=== PATIENT | male | born 1980 | race American Indian/Alaskan Native ===

== ENCOUNTER 2018-06-29 14:58 | Emergency (ER) | payer OTHER ==
--- NOTE | 2018-06-29 16:28 | Emergency Department Report ---
Chief Complaint: Nausea/Vomiting/Diarrhea Stated Complaint: CHEST PAIN/VOMITING/DIARRHEA Time Seen by Provider: 06/29/18 16:27 - HPI History of Present Illness: CO ABD PAIN AND NV RX METFORMIN PMH DM PSH NONE PCP SERGIO SERRANO ETOH NO CIG NO THC NO DRUGS MSE COMPLETED MSE screening note: Focused history and physical exam performed. Due to findings the following was ordered: ED Disposition for MSE Condition: Stable
[2018-06-29 17:28] LABS: Bacteria,Urine 4+ /HPF (Negative); Bilirubin,Urine NEG (Negative); Blood,Urine NEG (Negative); Color,Urine Yellow (Yellow); Mucus,Urine 3+ /HPF; Urobilinogen,Urine < 2.0 mg/dL (<2.0)
[2018-06-29 19:07] LABS: Alanine Aminotransferase 22 units/L (7-56); Albumin 4.4 g/dL (3.9-5); BUN/Creatinine Ratio 23; Blood Urea Nitrogen 16 mg/dL (9-20); Hemolysis Index 39
--- NOTE | 2018-06-29 19:11 | Emergency Department Report ---
ED General Adult HPI - General Chief complaint: Nausea/Vomiting/Diarrhea Stated complaint: CHEST PAIN/VOMITING/DIARRHEA Time Seen by Provider: 06/29/18 16:27 Source: patient Mode of arrival: Ambulatory Limitations: No Limitations - History of Present Illness Initial comments: Patient 37-year-old male with history of diabetes and hypertensi on who presents for chest pain and abdominal pain with nausea vomiting 5/10 for the past 3 days associated nausea and vomiting 2 hours ago last episode by mouth intake was this a.m. chest exacerbated by exertion and relieved by nothing patient endorses occasional EtOH and back pain there is no shortness of breath no diaphoresis no dizziness or lightheadedness at this time Onset/Timin -: days(s) Location: chest, back, abdomen Radiation: back, abdomen Severity scale (0 -10): 8 Quality: sharp Consistency: constant Improves with: none Worsens with: eating, movement Associated Symptoms: chest pain, malaise, nausea/vomiting Treatments Prior to Arrival: none - Related Data Previous Rx's Medication Instructions Recorded Last Taken Type Ondansetron [Zofran Odt] 4 mg PO Q8HR PRN #12 tab.rapdis 06/29/18 Unknown Rx traMADol [Ultram] 50 mg PO Q6HR PRN #12 tablet 06/29/18 Unknown Rx Allergies Allergy/AdvReac Type Severity Reaction Status Date / Time No Known Allergies Allergy Unverified 06/29/18 15:00 ED Review of Systems ROS: Stated complaint: CHEST PAIN/VOMITING/DIARRHEA Other details as noted in HPI Constitutional: malaise Eyes: denies: eye pain, eye discharge, vision change ENT: denies: ear pain, throat pain Respiratory: denies: cough, shortness of breath, wheezing Cardiovascular: chest pain Endocrine: no symptoms reported Gastrointestinal: abdominal pain, nausea, vomiting, diarrhea. denies: consti pation, hematemesis, melena, hematochezia Genitourinary: denies: urgency, dysuria Musculoskeletal: back pain Skin: denies: rash, lesions Neurological: denies: headache, weakness, paresthesias Psychiatric: denies: anxiety, depression Hematological/Lymphatic: denies: easy bleeding, easy bruising ED Past Medical Hx - Past Medical History Previous Medical History?: Yes Hx Diabetes: Yes - Surgical History Past Surgical History?: No - Social History Smoking Status: Never Smoker Substance Use Type: Alcohol - Medications Home Medications: Home Medications Medication Instructions Recorded Confirmed Last Taken Type Ondansetron [Zofran Odt] 4 mg PO Q8HR PRN #12 tab.rapdis 06/29/18 Unknown Rx traMADol [Ultram] 50 mg PO Q6HR PRN #12 tablet 06/29/18 Unknown Rx ED Physical Exam - General Limitations: No Limitations General appearance: alert, in no apparent distress - Head Head exam: Present: atraumatic, normocephalic - Eye Eye exam: Present: normal appearance, PERRL, EOMI Pupils: Present: normal accommodation - ENT ENT exam: Present: normal orophraynx, mucous membranes moist - Neck Neck exam: Present: normal inspection, full ROM. Absent: tenderness, meningismus, lymphadenopathy, thyromegaly - Respiratory Respiratory exam: Present: normal lung sounds bilaterally. Absent: respiratory distress, wheezes, stridor, chest wall tenderness - Cardiovascular Cardiovascular Exam: Present: regular rate, normal rhythm, normal heart sounds. Absent: systolic murmur, diastolic murmur, rubs, gallop - GI/Abdominal GI/Abdominal exam: Present: soft, tenderness (epigastric ), normal bowel sounds. Absent: guarding, rebound, rigid, bruit, hernia - Expanded GI/Abdominal Exam Expanded GI/Abdominal exam: Present: Rovsing's sign. Absent: psoas sign, obturator sign, heel tap sign, Kam's sign, tenderness at Mcburney's Point, ascites - Rectal Rectal exam: Present: deferred - Extremities Exam Extremities exam: Present: normal inspection - Back Exam Back exam: Present: normal inspection, full ROM. Absent: tenderness, CVA tenderness (R), CVA tenderness (L), muscle spasm, paraspinal tenderness, vertebral tenderness, rash noted - Neurological Exam Neurological exam: Present: alert, oriented X3, CN II-XII intact, normal gait - Psychiatric Psychiatric exam: Present: normal affect, normal mood - Skin Skin exam: Present: warm, dry, intact, normal color. Absent: rash ED Medical Decision Making - Lab Data Result diagrams: 06/29/18 18:30 06/29/18 18:30 - Radiology Data Radiology results: report reviewed, image reviewed c: ALFREDA FERNANDEZ NP PROCEDURE: CT ABDOMEN PELVIS WO CON TECHNIQUE: HISTORY: abd pain hx renal stones COMPARISONS: None FINDINGS: Lower Lung thomas: No significant abnormalities seen. Upper Abdomen: The liver, gallbladder, the adrenal glands, the pancreas and the spleen are unremarkable. Kidneys, Ureters and Urinary bladder: No abnormalities are seen. No renal or ure teral calculi are visualized. There are no renal masses identified. There is no hydronephrosis. Urinary bladder is nearly empty and difficult to characterize. No gross abnormality is seen. Retroperitoneum: Abdominal aorta appears normal. Nonspecific subcentimeter lymph nodes are seen in the retroperitoneum. No pathologically enlarged lymph nodes are identified. Bowel: No focal bowel loop abnormalities are visualized. There is no evidence of bowel obstruction ascites or free intraperitoneal gas. Normal-appearing appendix is seen in the right lower quadrant. Small umbilical hernia containing adipose tissue is visualized. No herniated loops of bowel are seen. - Medical Decision Making CT Abd Pelvis smal umbillical hernia, CXR: normal no infiltrate no opacities, labs: normal UA: moderate rbc, wbd, plan tx for UTI , umbilical hernia , hernia is stable no obstruction, plan dc to home with rx for zofran, Ultram, Bactrim DS pt verbalized agreement and understanding of discharge plan. pt dc'd to home in stable condition at this time. Critical care attestation.: If time is entered above; I have spent that time in minutes in the direct care of this critically ill patient, excluding procedure time. ED Disposition Clinical Impression: Abdominal pain Qualifiers: Abdominal location: left lower quadrant Qualified Code(s): R10.32 - Left lower quadrant pain Disposition: DC-01 TO HOME OR SELFCARE Is pt being admited?: No Does the pt Need Aspirin: No Condition: Good Instructions: Umbilical Hernia (ED), Urinary Tract Infection in Men (ED) Prescriptions: traMADol [Ultram] 50 mg PO Q6HR PRN #12 tablet PRN Reason: Pain Ondansetron [Zofran Odt] 4 mg PO Q8HR PRN #12 tab.rapdis PRN Reason: nausea vomitting Referrals: PRIMARY CARE,MD [Primary Care Provider] - 3-5 Days EMILY KOWALSKI DO [Staff Physician] - 3-5 Days Forms: Work/School Release Form(ED) Time of Disposition: 22:13
[2018-06-29 19:12] LABS: Hematocrit 49.9 % (35.5-45.6); Hemoglobin 16.4 gm/dl (11.8-15.2); Mean Corpuscular HGB Conc 33 % (32-34); Mean Corpuscular Volume 88 fl (84-94); Platelet Count 222 K/mm3 (140-440); Red Cell Distribution Width 13.3 % (13.2-15.2)
--- NOTE | 2018-06-29 19:31 | XRay Report ---
PROCEDURE: Chest. TECHNIQUE: PA and lateral views. HISTORY: Chest pain. COMPARISONS: None. FINDINGS: The heart and mediastinum appear normal. The lungs are clear and well-expanded. The soft tissues and regional skeleton are unremarkable. IMPRESSION: Normal study. This document is electronically signed by Mitul Ashley MD., June 29 2018 07:28:45 PM ET
[2018-06-29] MEDS ORDERED: TORADOL IV ONE (20:09)
[2018-06-29] MEDS ORDERED: NACL 0.9% 1000 ML 1,000 ML IV ONE (20:09)
[2018-06-29] MEDS ORDERED: ZOFRAN IV ONE (20:09)
--- NOTE | 2018-06-29 21:46 | Cat Scan Report ---
PROCEDURE: CT ABDOMEN PELVIS WO CON TECHNIQUE: HISTORY: abd pain hx renal stones COMPARISONS: None FINDINGS: Lower Lung thomas: No significant abnormalities seen. Upper Abdomen: The liver, gallbladder, the adrenal glands, the pancreas and the spleen are unremarka ble. Kidneys, Ureters and Urinary bladder: No abnormalities are seen. No renal or ureteral calculi are vi sualized. There are no renal masses identified. There is no hydronephrosis. Urinary bladder is nearly empty and difficult to characterize. No gross abnormality is seen. Retroperitoneum: Abdominal aorta appears normal. Nonspecific subcentimeter lymph nodes are seen in the retroperitoneum. No pathologically enlarged ly mph nodes are identified. Bowel: No focal bowel loop abnormalities are visualized. There is no evidence of bowel obstruction a scites or free intraperitoneal gas. Normal-appearing appendix is seen in the right lower quadrant. Sm all umbilical hernia containing adipose tissue is visualized. No herniated loops of bowel are seen. Reproductive organs: Prostate gland does not appear to be significantly enlarged. Other: No acute bony abnormalities are identified. IMPRESSION: No evidence of renal or ureteral calculi. There is no hydronephrosis. No acute abnormalities are identified. There is a small umbilical hernia containing adipose tissue. No herniated loops of bowel are seen. This document is electronically signed by Carmelo Moon MD., June 29 2018 09:44:41 PM ET
[2018-06-29 22:55] VITALS: BP 138/92
== END 2018-06-29 22:53 | disposition home or self-care (01) ==
LOC: ED 14:58
DX: R10.32 Left lower quadrant pain (principal); R11.2 Nausea with vomiting, unspecified; R07.89 Other chest pain; R19.7 Diarrhea, unspecified; I10 Essential (primary) hypertension; E11.9 Type 2 diabetes mellitus without complications
CPT/HCPCS: 36415; 71046; 74176; 80053; 81001; 82805; 82962; 83690; 84484; 85027; 93005; 93010; 96361; 96374; 96375; 99284; J1885; J2405; J7030

== ENCOUNTER 2019-04-10 01:49 | Emergency (ER) | payer SELFPAY ==
[2019-04-10 01:58] VITALS: BP 133/85
--- NOTE | 2019-04-10 05:10 | Emergency Department Report ---
Abscess Boil HPI - HPI Chief Complaint: Skin/Abscess/Foreign Body Stated Complaint: HEADACHE Time Seen by Provider: 04/10/19 04:43 Duration: 5 Days Location: Head (occipital scalp) Severity: Moderate History: Yes Pain, Yes Purulent Drainage, No Fever, No Numbness, No Foreign Body, No Previous History, No Insect Bite HPI: This is a 38-year-old -[place] male that presents to the emergency room with a painful abscess to occipital scalp for 3 days. Past medical history of diabetes type 2. Patient reports purulent foul-smelling discharge. Patient states he is applying cool compresses with minimal improvement in symptoms. He denies numbness or tingling. Home Medications: Previous Rx's Medication Instructions Recorded Last Taken Type Ondansetron [Zofran Odt] 4 mg PO Q8HR PRN #12 tab.rapdis 06/29/18 Unknown Rx Sulfamethoxazole/Trimethoprim 1 each PO BID 10 Days #20 tablet 06/29/18 Unknown Rx [Bactrim DS TAB] traMADoL [Ultram] 50 mg PO Q6HR PRN #12 tablet 06/29/18 Unknown Rx Clindamycin Phosphate [Clindamycin 1 applicatio TP TID #1 foam 04/10/19 Unknown Rx 1% TOPICAL FOAM] Clindamycin [Clindamycin CAP] 300 mg PO Q6H #40 capsule 04/10/19 Unknown Rx Allergies/Adverse Reactions: Allergies Allergy/AdvReac Type Severity Reaction Status Date / Time No Known Allergies Allergy Unverified 06/29/18 15:00 ED Review of Systems ROS: Stated complaint: HEADACHE Other details as noted in HPI Constitutional: denies: chills, fever Respiratory: denies: cough, shortness of breath, wheezing Cardiovascular: denies: chest pain, palpitations Gastrointestinal: denies: abdominal pain, nausea, diarrhea Skin: lesions (painful abscess to occipital scalp). denies: change in color, ch marisa in hair/nails, pruritus Neurological: denies: headache, weakness, paresthesias Psychiatric: denies: anxiety, depression ED Past Medical Hx - Past Medical History Previous Medical History?: Yes Hx Diabetes: Yes - Surgical History Past Surgical History?: No - Social History Smoking Status: Never Smoker Substance Use Type: None - Medications Home Medications: Home Medications Medication Instructions Recorded Confirmed Last Taken Type Ondansetron [Zofran Odt] 4 mg PO Q8HR PRN #12 tab.rapdis 06/29/18 Unknown Rx Sulfamethoxazole/Trimethoprim 1 each PO BID 10 Days #20 tablet 06/29/18 Unknown Rx [Bactrim DS TAB] traMADoL [Ultram] 50 mg PO Q6HR PRN #12 tablet 06/29/18 Unknown Rx Clindamycin Phosphate [Clindamycin 1 applicatio TP TID #1 foam 04/10/19 Unknown Rx 1% TOPICAL FOAM] Clindamycin [Clindamycin CAP] 300 mg PO Q6H #40 capsule 04/10/19 Unknown Rx ED Abscess Boil Physical Exam - Exam General: Vital signs noted. No distress. Alert and acting appropriately. Front/Back of Body, Lg (Color): 1 - 1 cm nonfluctuant nodule to occipital scalp, purulent drainage, TTP, no surrounding cellulitis Size: 1 cm Exam: Yes Tenderness, Yes Normal Neurologic Exam, Yes Normal Circulation, No Fluctuance, No Surrounding Cellulites/Erythema, No Lymphangitis, No Crepitation, No Heart Murmur ED Course Vital Signs 04/10/19 01:52 Temperature 99.4 F Pulse Rate 95 H Respiratory 18 Rate Blood Pressure 133/85 O2 Sat by Pulse 95 Oximetry Critical care attestation.: If time is entered above; I have spent that time in minutes in the direct care of this critically ill patient, excluding procedure time. ED Medical Decision Making - Medical Decision Making This is a 38 y.o. male that presents with a painful abscess to occipital scalp for 3 days. Past medical history of diabetes type 2. No history of prior abscess. Patient is stable and examined by this provider. Physical assessment of 1 cm nonfluctuant nodule to occipital scalp, purulent drainage, TTP. No acute signs of distress noted. Abscess is currently draining and even with mild palpation. Start trauma doll, clindamycin orally and topically. Instructed to apply warm compress. Educated patient and spouse on follow up plan to have woun d reassessed in 2-3 days with a primary care doctor.. Patient agrees to ED plan of care. Discharged home and follow up with PCP in 2-3 days. ED Disposition Clinical Impression: Folliculitis, Pain due to abscess Disposition: DC-01 TO HOME OR SELFCARE Is pt being admited?: No Condition: Stable Instructions: Folliculitis (ED) Additional Instructions: Complete full course of antibiotics as prescribed. Follow up with a primary care doctor in 2-3 days to have wound reevaluated. Was sent to the emergency room if foul smelling discharge, swelling, or pain in wound. Prescriptions: Clindamycin Phosphate [Clindamycin 1% TOPICAL FOAM] 1 applicatio TP TID #1 foam Clindamycin [Clindamycin CAP] 300 mg PO Q6H #40 capsule Referrals: [facility] [Outside] - 3-5 Days [facility] [Outside] - 3-5 Days [facility] [Outside] - 3-5 Days Forms: Work/School Release Form(ED) Time of Disposition: 05:16
[2019-04-10] MEDS ORDERED: HYDROcodone/ACETAMINOPHEN 5-325 MG TAB PO ONE (05:29)
== END 2019-04-10 05:37 | disposition home or self-care (01) ==
LOC: ED 01:49
DX: L73.9 Follicular disorder, unspecified (principal); E11.9 Type 2 diabetes mellitus without complications
CPT/HCPCS: 99282

== ENCOUNTER 2019-06-14 00:57 | Emergency (ER) | payer SELFPAY ==
--- NOTE | 2019-06-14 01:47 | Emergency Department Report ---
- General Chief complaint: Hyperglycemia Stated complaint: HIGH BLOOD SUGAR BLURRED VISION Time Seen by Provider: 06/14/19 01:45 Source: patient Mode of arrival: Ambulatory Limitations: No Limitations - Related Data Previous Rx's Medication Instructions Recorded Last Taken Type Ondansetron [Zofran Odt] 4 mg PO Q8HR PRN #12 tab.rapdis 06/29/18 Unknown Rx Sulfamethoxazole/Trimethoprim 1 each PO BID 10 Days #20 tablet 06/29/18 Unknown Rx [Bactrim DS TAB] traMADoL [Ultram] 50 mg PO Q6HR PRN #12 tablet 06/29/18 Unknown Rx Clindamycin Phosphate [Clindamycin 1 applicatio TP TID #1 foam 04/10/19 Unknown Rx 1% TOPICAL FOAM] Clindamycin [Clindamycin CAP] 300 mg PO Q6H #40 capsule 04/10/19 Unknown Rx Metformin HCl [metFORMIN] 1,000 mg PO BID #60 tablet 04/10/19 Unknown Rx traMADoL [Ultram 50 MG tab] 50 mg PO Q6HR PRN #12 tablet 04/10/19 Unknown Rx Allergies Allergy/AdvReac Type Severity Reaction Status Date / Time No Known Allergies Allergy Verified 06/14/19 01:01 ED Review of Systems ROS: Stated complaint: HIGH BLOOD SUGAR BLURRED VISION Other details as noted in HPI ED Past Medical Hx - Past Medical History Previous Medical History?: Yes Hx Diabetes: Yes - Surgical History Past Surgical History?: No - Social History Smoking Status: Never Smoker Substance Use Type: None - Medications Home Medications: Home Medications Medication Instructions Recorded Confirmed Last Taken Type Ondansetron [Zofran Odt] 4 mg PO Q8HR PRN #12 tab.rapdis 06/29/18 Unknown Rx Sulfamethoxazole/Trimethoprim 1 each PO BID 10 Days #20 tablet 06/29/18 Unknown Rx [Bactrim DS TAB] traMADoL [Ultram] 50 mg PO Q6HR PRN #12 tablet 06/29/18 Unknown Rx Clindamycin Phosphate [Clindamycin 1 applicatio TP TID #1 foam 04/10/19 Unknown Rx 1% TOPICAL FOAM] Clindamycin [Clindamycin CAP] 300 mg PO Q6H #40 capsule 04/10/19 Unknown Rx Metformin HCl [metFORMIN] 1,000 mg PO BID #60 tablet 04/10/19 Unknown Rx traMADoL [Ultram 50 MG tab] 50 mg PO Q6HR PRN #12 tablet 04/10/19 Unknown Rx ED Physical Exam - General Limitations: No Limitations ED Course Vital Signs 06/14/19 01:02 Temperature 97.9 F Pulse Rate 76 Respiratory 18 Rate Blood Pressure 144/92 O2 Sat by Pulse 96 Oximetry Critical care attestation.: If time is entered above; I have spent that time in minutes in the direct care of this critically ill patient, excluding procedure time. ED Disposition Condition: Stable Referrals: PRIMARY CARE, [Primary Care Provider] - 3-5 Days
[2019-06-14 02:26] LABS: Mucus,Urine FEW /HPF
[2019-06-14 02:41] LABS: BUN/Creatinine Ratio 15; Blood Urea Nitrogen 12 mg/dL (9-20); Calcium 9.9 mg/dL (8.4-10.2); Hemolysis Index 15
[2019-06-14 02:57] LABS: Bilirubin,Urine NEG (Negative); Blood,Urine NEG (Negative); Color,Urine Yellow (Yellow); Protein,Urine <15 mg/dL mg/dL (Negative)
[2019-06-14 03:07] VITALS: BP 116/78
== END 2019-06-14 03:08 | disposition home or self-care (01) ==
LOC: ED 00:57
DX: H53.8 Other visual disturbances (principal); E11.9 Type 2 diabetes mellitus without complications; Z79.899 Other long term (current) drug therapy
CPT/HCPCS: 36415; 80048; 81001; 82962